=== PATIENT | female | born 1985 | race Caucasian/White ===

== ENCOUNTER → 2016-06-29 14:01 | Outpatient (CLI) | payer BC | END | disposition home or self-care (01) | LOC: D.RAD 14:00 | DX: M25.551 Pain in right hip (principal) ==

== ENCOUNTER → 2016-07-09 16:36 | Outpatient (CLI) | payer BC | END | disposition home or self-care (01) | LOC: D.MAMMO 08:30 | DX: N63 Unspecified lump in breast (principal) ==

== ENCOUNTER → 2017-09-05 12:26 | Outpatient (CLI) | payer BC | END | disposition home or self-care (01) | LOC: D.RAD 12:26 | DX: M79.642 Pain in left hand (principal) ==

== ENCOUNTER 2018-10-27 17:13 | Emergency (ER) | payer BC ==
[~2018-10-27] VITALS: Ht 162.6 cm; Wt 84.5 kg
[2018-10-27 17:31] VITALS: Ht 162.6 cm; Wt 84.5 kg
[2018-10-27] MEDS ORDERED: ADIPEX-P37.5 M1 PO (17:32)
[2018-10-27 18:53] VITALS: BP 115/86
== END 2018-10-27 18:53 | disposition home or self-care (01) ==
LOC: D.ER 17:13
DX: G97.1 Other reaction to spinal and lumbar puncture (principal)

== ENCOUNTER 2019-02-13 05:20 | Day surgery (SDC) | payer BC ==
[2019-02-10 15:19] LABS: BASOPHILS 0.5 % (0-2); EOSINOPHILS 0.9 % (0-7); HEMATOCRIT 35.5 % (36.0-48.0); HEMOGLOBIN 12.4 g/dL (12-16); LYMPHOCYTES 26.1 % (15-50); MCH 31.7 pg (26.0-34.0); MCHC 34.9 g/dL (31.0-37.0); MCV 90.8 fL (80.0-100.0); MEAN PLATELET VOLUME 9.5 fL (7.4-10.4); NEUTROPHILS 65.5 % (40-80); PLATELET COUNT 225 10x3/uL (130-400); RBC 3.91 10x6/uL (4.00-5.40); RDW 14.6 % (11.5-14.5); WBC 4.3 10x3/uL (4.8-10.8)
[~2019-02-13] VITALS: Ht 162.6 cm; Wt 77.1 kg
[~2019-02-13 05:20] MED LIST: ADIPEX-P37.5 M1 PO; THEREMS-M1 TAB PO
[2019-02-13 06:15] VITALS: BP 110/77; Ht 162.6 cm; Wt 77.1 kg
[2019-02-13 06:27] LABS: HCG URINE NEGATIVE (NEGATIVE)
--- NOTE | 2019-02-14 19:59 | OP ---
PATIENT NAME: RODNEY MENDOZA MEDICAL RECORD: [id number] :83 LOCATION:[facility] ADMISSION DATE: SURGEON: RAEGAN WEST DO DATE OF OPERATION: 02/13/2019 PREOPERATIVE DIAGNOSIS: Multiparity, desire for permanent sterilization. POSTOPERATIVE DIAGNOSIS: Multiparity, desire for permanent sterilization. PROCEDURE: Laparoscopic bilateral tubal ligation with Falope ring. SURGEON: Raegan Wets DO ANESTHESIA: Shara Lal CRNA FINDINGS: Normal-appearing external genitalia. Normal-appearing uterus, bilateral fallopian tubes, bilateral ovaries. FLUIDS: 800 cc. OUTPUT: 100 cc clear urine. ESTIMATED BLOOD LOSS: 3 cc. COMPLICATIONS: None. CONDITION: Stable. DESCRIPTION OF PROCEDURE: The risks, benefits, alternatives, and indications of the procedure were discussed with the patient. She voiced understanding of the procedure and signed the consent. She understood that tubal ligation is a permanent procedure and expressed desire for permanent sterilization. She was taken to the OR, where general anesthesia was administered and found to be adequate. She was placed in the dorsal lithotomy position. She was prepped and draped in a normal sterile fashion. A sponge stick was placed into the vagina as the uterine manipulator. Gloves were changed and attention was then turned to the abdomen. The abdomen was elevated using towel clips and Marcaine was injected into the umbilicus. A Veress needle was used to enter the abdominal cavity and correct placement was confirmed with saline drop test. Pneumoperitoneum was achieved to 15 mmHg. A 5-mm incision was made in the umbilicus. The Veress needle was removed and a 5-mm port was placed under direct laparoscopic visualization with good placement noted. An 8-mm port was placed in the left lower quadrant 2 cm superior and 2 cm medial to the ASIS under direct laparoscopic visualization. Uterus was elevated out of the abdomen. Trendelenburg position was achieved. A blunt probe was used to move the colon out of the pelvis, and the left and right tube were ligated with Falope ring applicator and good placement was noted. The left side was not ligated completely and a second Falope ring was placed with good hemostasis. All instruments and ports were removed from the abdomen. The pneumoperitoneum was released. The port sites were closed with 3-0 Monocryl and Dermabond with good hemostasis noted. The patient tolerated the procedure well. She was awakened and taken to the recovery room in stable condition. TRANSINT:[id number] Voice Confirmation ID: [id number] DOCUMENT ID: [id number] OPERATIVE REPORT [id number] RODNEY MENDOZA,RAEGAN TOVAR at 1960 CC: [id number] DICTATION DATE: 02/13/19828 SOLOIST DANCER: 02/13/19 [address] [facility] 02/13/19 [place] [id number] [place] [id number]
== END 2019-02-13 11:16 | disposition home or self-care (01) ==
LOC: D.OPS 05:20 → D.PAN 07:30 → D.OPS 11:16
PROVIDERS: ATTEND Student in an Organized Health Care Education/Training Program
DX: Z30.2 Encounter for sterilization (principal)

== ENCOUNTER → 2019-03-13 09:31 | Outpatient (CLI) | payer BC | END | disposition home or self-care (01) | LOC: D.MRI 09:31 | PROVIDERS: ATTEND Internal Medicine Cardiovascular Disease | DX: M54.12 Radiculopathy, cervical region (principal) ==

== ENCOUNTER → 2020-03-11 20:35 | Outpatient (CLI) | payer BC | END | disposition home or self-care (01) | LOC: D.LABREF 20:35 | PROVIDERS: ATTEND Nurse Practitioner Adult Health | DX: R53.83 Other fatigue (principal) ==

== ENCOUNTER → 2020-08-26 13:30 | Outpatient (CLI) | payer BC | END | disposition home or self-care (01) | LOC: D.LAB 13:30 | PROVIDERS: ATTEND Internal Medicine Cardiovascular Disease | DX: Z11.52 Encounter for screening for COVID-19 (principal); Z01.812 Encounter for preprocedural laboratory examination ==

== ENCOUNTER → 2020-11-02 09:27 | Day surgery (SDC) | payer BC ==
--- NOTE | 2020-11-01 12:07 | NUR ---
CONFIRMED PT APPT FOR RIGHT HIP INJECTION 11/02/20
--- NOTE | ~2020-11-02 | HEMODYNAMI ---
PATIENT:RODNEY MENDOZA MEDICAL RECORD: [id number] : 83 LOCATION:[facility] ADMISSION DATE: 11/02/20 Generatedon:110:17 Patient name: RODNEY MENDOZA Patient #: [id number] SSN: : 1985 Date of study: 11/02/2020 Page: Of Hemodynamic Procedure Report Patient Data Patient Demographics First Name: RODNEY Gender: Female Last Name: REJI : 1985 Middle Initial: IVANA Age: 35 year(s) Patient #: [id number] Race: Unknown Additional ID: [id number] Contact details Address: [facility] [address] State: [place] City: [place] Zip code: [address] Admission Admission Data Admission Date: 11/02/2020 Admission Time: 9:27 Procedure Procedure Types Cath Procedure Peripheral Cath Diagnostic Procedure Court Advocate Peripheral Procedures Miscellaneous Aspiration/Injection (Joint) Procedure Description Procedure Date Procedure Date: 11/02/2020 Procedure Start Time: 10:04 Procedure Staff Name Function Baldemar Scanlon MD Performing Physician Belia Sandoval RT Quality Control Inspector Mariusz Seo RT Scrub Procedure Data Cath Procedure Fluoroscopy Diagnostic fluoroscopy Total fluoroscopy Time: 0.4 time: 0.4 min min Diagnostic fluoroscopy Total fluoroscopy dose: 3 dose: 3 mGy mGy Contrast Material Contrast Material Type Amount (ml) Isovue 200 4 Hemodynamics Rest Pre Cath Intra NCS Post Cath Procedure Log Time Note 9:51:54 SAFE-T PLUS MYELOGRAM TRAY opened to sterile field. 10:00:52 Belia Sandoval RT(R) sent for patient. Start room use. 10:01:12 Patient received from Outpatients to IR Alert and oriented. Tansferred to table in Supine position. 10:01:14 Correct patient and procedure confirmed by team. 10:01:17 - 10:01:18 Pre-procedure instructions explained to patient. 10:01:18 Pre-op teaching completed and patient verbalized understanding. 10:01:45 VANCOMYCIN AND TORADOL ALLERGIES 10:01:54 Is patient on blood thinner?No 10:02:14 Right Hip was prepped with betadine and draped in sterile fashion. 10:03:11 Physician arrived 10:03:11 --------ALL STOP TIME OUT------ 10:03:12 Final Timeout: patient, procedure, and site verified with staff and physician. All members of the team are in agreement. 10:03:15 Right groin site verified by team. 10:03:21 Sedation plan: Local Anesthetic Medication:Lidocaine 10:04:20 Procedure started. 10:04:20 Full Disclosure recording started 10:04:27 Local anesthetic to Right Hip with Lidocaine 1% by Baldemar Scanlon MD.INITIAL ACCESS ONLY 10:16:07 Procedure ended.(Physican Out) 10:16:35 Contrast amount:Isovue 200 4ml. 10:16:59 Fluoroscopy time 00.40 minutes. 10:17:03 Flurop Dose total: 3 10:17:03 Fluoroscopy dose: 3 mGy 10:17:27 BANDAIDE APPLIED SITE STABLE PT SENT HOME Device Usage Item Name Manufacture Quantity Catalog Hospital Part Current Minimal Lot# / Number Charge Number Stock Stock Serial# Code SAFE-T [employer] 1 [id number] PLUS MYELOGRAM TRAY Signature Audit Marcell Stage Time Signature Unsigned Intra-Procedure 11/02/2020 Mariusz 10:17:49 AM Gabbi RT (R) (CV) [facility] [address] [place] [address]
== END | disposition home or self-care (01) ==
LOC: D.RAD 09:27
PROVIDERS: ATTEND Clinical Nurse Specialist Family Health
DX: S73.191A Other sprain of right hip, initial encounter (principal)

== ENCOUNTER → 2020-11-25 15:27 | Outpatient (CLI) | payer BC | END | disposition home or self-care (01) | LOC: D.MRI 15:27 | PROVIDERS: ATTEND Orthopaedic Surgery | DX: M25.551 Pain in right hip (principal) ==